=== PATIENT | female | born 1965 | race Caucasian/White ===

== ENCOUNTER 2017-09-05 14:09 | Emergency (ER) | payer SELFPAY ==
[~2017-09-05] VITALS: Ht 160 cm; Wt 62.0 kg
[~2017-09-05 14:09] MED LIST: CEFTIN500 MG PO; FLEXERIL10 MG PO; MOTRIN600 MG PO; PERCOCET 5/31 TABLET PO; ZITHROMAX250 MG PO
[2017-09-05] MEDS ORDERED: CLONIDINE HCL0.1 MG PO (14:51)
[2017-09-05] MEDS ORDERED: ZOFRAN ODT4 MG PO (14:51)
[2017-09-05] MEDS ORDERED: TRAZODONE HCL50 MG PO (14:51)
[2017-09-05 15:11] VITALS: BP 130/84
== END 2017-09-05 14:52 | disposition home or self-care (01) ==
LOC: EME 14:09
DX: F11.23 Opioid dependence with withdrawal (principal); M79.7 Fibromyalgia; M54.9 Dorsalgia, unspecified; I25.2 Old myocardial infarction; I10 Essential (primary) hypertension; Z91.14 Patient's other noncompliance with medication regimen; F17.200 Nicotine dependence, unspecified, uncomplicated
CPT/HCPCS: 99281; 99284